=== PATIENT | female | born 1965 | race Caucasian/White ===

== ENCOUNTER 2023-09-21 17:33 | Emergency (ER) | payer OTHER, SELFPAY ==
--- NOTE | 2023-09-21 17:43 | ED.FEMALEGU ---
HPI - Female Genitourinary General Chief complaint: Urogenital-Female Stated complaint: Urinary Problems Time Seen by Provider: 09/21/23 18:08 Source: patient and RN notes reviewed Mode of arrival: ambulatory Limitations: no limitations History of Present Illness HPI Narrative: 58-year-old female presents with concern for intermittent history for 2 weeks dysuria, frequency, urgency, low back pain. Reports she started feeling slightly nauseated today. Denies fever, vomiting, abdominal pain. Reports history of UTIs MD elicited complaint: UTI Related Data Home Medications Medication Instructions Recorded Confirmed levothyroxine 100 mcg tablet 100 mcg PO DAILY 11/16/21 09/21/23 losartan 100 1 tablet PO DAILY 11/16/21 09/21/23 mg-hydrochlorothiazide 12.5 mg tablet metformin 1,000 mg tablet,extended 1,000 mg PO DAILY 11/16/21 09/21/23 release 24hr (osmotic) pravastatin 40 mg tablet 40 mg PO DAILY 11/16/21 09/21/23 venlafaxine 150 mg 150 mg PO DAILY 11/16/21 09/21/23 capsule,extended release 24 hr Allergies Allergy/AdvReac Type Severity Reaction Status Date / Time atropine Allergy Unknown Hives Verified 09/21/23 17:48 latex Allergy Unknown Hives Verified 09/21/23 17:48 Sulfa (Sulfonamide Allergy Unknown Hives Verified 09/21/23 17:48 Antibiotics) ANTIDIARRHEA Allergy Unknown Hives Uncoded 09/21/23 17:48 DIPHENOXYLATE/ATROPINE Allergy Unknown Y Uncoded 09/21/23 17:48 (Generic Allergy) SULFAMETHOXAZOLE (Generic Allergy Unknown Y Uncoded 09/21/23 17:48 Allergy) Review of Systems Review of Systems: CONSTITUTIONAL: Denies malaise, chills, sweats, or fever. CARDIOVASCULAR: Denies chest pain, palpitations, or edema. RESPIRATORY: Denies cough or dyspnea. GASTROINTESTINAL: Denies abdominal pain, nausea, vomiting, diarrhea GENITOURINARY: Reports dysuria, frequency, urgency. Denies flank pain or hematuria. SKIN: Denies rash or itching. MUSCULOSKELETAL: Reports low back pain All systems reviewed & are unremarkable except as noted in HPI and below PMFSH Past Medical History Medical History Cardiac arrhythmia Diabetes High cholesterol Hypertension Surgical History Surgical History H/O: hysterectomy History of tubal ligation Family History Family History Mother Hypertension Family history of osteoarthritis Father Hypertension Family history of diabetes mellitus in first degree relative Sibling Hypertension Social History Social History (Updated 01/31/23 @ 16:12 by Yumiko Nesbitt MA) Smoking status: Current every day smoker Tobacco type: cigarettes Alcohol intake: current Alcohol use details: soically Substance use: never Substance use type: does not use Lack of Transportation: No Lack of Food: Never True Current Housing: I Have Housing Concerned About Future Housing: No Difficulty Paying Gas/Electric Bills: No Difficulty Paying for Meds: No Currently Unemployed: No Education: High School Diploma/GED Living arrangements: with family Occupation/Education: occupation Gender identity (if verbalized by the patient): Female Sexual Orientation (if Verbalized by the Patient): Straight or Heterosexual Comments At time of signature, agree with nursing past medical, surgical, social and family history. There is no relevant family history pertinent to the presenting complaint Exam Narrative: GENERAL: Well-appearing, well-nourished, and in no acute distress. HEAD: Normocephalic. EYES: PERRLA, conjunctivae clear. NECK: Supple. No lymphadenopathy CHEST: Clear to auscultation. No respiratory distress. HEART: Regular rate and rhythm. ABDOMEN: Soft, nontender upon palpation, nondistended, normal active bowel sounds, no palpable or pulsatile masses, no guarding. No CVA tenderness SKIN: Warm, dry, no
[2023-09-21 17:53] VITALS: BP 117/69; PULSE 93; RESP 16; TEMP 36.7; O2SAT 98
== END 2023-09-21 18:20 | disposition home or self-care (01) ==
PROVIDERS: Emergency Provider Nurse Practitioner; PCP Physician Assistant
DX: R30.0 Dysuria (principal); R35.0 Frequency of micturition; R39.15 Urgency of urination; E78.00 Pure hypercholesterolemia, unspecified; I10 Essential (primary) hypertension; E11.9 Type 2 diabetes mellitus without complications; Z79.84 Long term (current) use of oral hypoglycemic drugs
CPT/HCPCS: 81003; 87086; 87088; 99213; G0463

== ENCOUNTER 2025-03-03 10:34 | Outpatient (CLI) | payer OTHER, SELFPAY ==
--- OUTSIDE RECORDS SUMMARY | 2010-04-12 04:30 | XMS_ITS | Continuity of Care Document ---
Author Organization [facility] Address [address] [place] [address] Phone Care Team Providers Care Slug Press Operator Name Role Phone Romaine Liz Unavailable Unavailable Procedures Procedure Date Visual Field Examination(s) Office/outpatient Visit, Est Office/outpatient Visit, Est Visual Field Examination(s) Office/outpatient Visit, Est Office/outpatient Visit, Est Visual Field Examination(s) Office/outpatient Visit, Est Fundus Photography W/ Report Office/outpatient Visit, Est Visual Field Examination(s) Vision Svcs Frames Purchases Progressive Lens, Plastic Tint Photochromatic, Plastic Tax - Medical Eye Exam & Treatment Refraction Advance Directives Directive Yes / No Effective Date File Name No Information Encounters Encounter Description Practice Location Reason(s) For Visit Diagnoses Date Provider Providers Copied on Encounter [facility], [address], [place], [place], [id number], [place] tel:[phone] [facility] No Information Apr- 2-201 0 Agusto Gavin. [facility] , [address], [place], [address], [place]. tel:[phone] Referring Provider: Judy [facility]omes [facility] [address] [address], [place], [place], [facility]. tel:[phone] Office/outpat ient Visit, [facility], [id number] [place] [address] [address], [place], [place], [id number], [place] tel:[phone] [facility] No Information Dec-0 7-201 0 Agusto Gavin. [address] [place], [place] [address]ate Center , [address], [place], [place], [facility], . tel:[phone] Office/outpat ient Visit, [facility], [address] [place] [address] [address], [place], [place], [address], [place] tel:[phone] [facility] [place] No Information 0 5201 0 Agusto Gavin. [address] [place] [address] Center , [address], [place], [place], [facility], . tel:[phone] [facility], [address] [place] [address] [address], [place], [place], [id number], [place] tel:[phone] [facility] [place] No Information 2 9200 9 Agusto Gavin. [address] [place], [place] [address]ate Center , [address], [place], [place], [facility], . tel:[phone] Referring Provider: Romaine Briones, [address] [place], [place] [address]ate Center [address], [place], [facility]. tel:[phone] Office/outpat ient Visit, [facility], [address] [place] [address] [address], [place], [place], [id number], [place] tel:[phone] [facility] [place] No Information 200 9 Agusto Gavin. [address] [place] [address] , [address], [place], [place], [facility], . tel:[phone] Office/outpat ient Visit, [facility], [address] [place] [address] [address], [place], [place], [id number], [place] tel:[phone] [facility] No Information 2 5-200 9 Agusto Gavin. [address] [place], [place] [address]ate Center , [address], [place], [place], [facility], . tel:[phone] [facility], [address], [place], [place], [address], [place] tel:[phone] [facility] No Information 2 4-200 8 Agusto Gavin. [address] [place], [place] [address]ate Center , [address], [place], [facility], [place]. tel:[phone] Referring Provider: Romaine Briones, [address] [place], [place] [address]ate [place] [address], [place], [facility]. tel:[phone] Office/outpat ient Visit, [facility], [address] [place] [address] [address], [place], [place], [id number], tel:[phone] [facility] No Information 8-200 8 Agusto Gavin. [address] [place], [place] [address]ate Center , [address], [place], [facility], [place]. tel:[phone] Referring Provider: Romaine Briones, [address] [place], [place] [address]ate Center [address], [place], [facility]. tel:[phone] Office/outpat ient Visit, [facility], [address] [place] [address] [address], [place], [place], [address], [place] tel:[phone] [facility] No Information 5-200 8 Agusto Gavin. [address] [place], [place] [address]ate [place] , [address], [place], [facility], [place]. tel:[phone] [facility], [address] [place] [address] [address], [place], [place], [address], [place] tel:[phone] [facility] No Information Apr-0 4-200 7 Agusto Gavin. [address] [place] [address] , [address], [place], [address], [place]. tel:[phone] Referring Provider: Romaine Briones, [facility] [place] [address], [place], [facility]. tel:[phone] [facility], [address] [facility] [address], [place], [place], [address], [place] tel:[phone] [facility] No Information Asif-0 1200 7 [facility] [employer] . [address], [address], [place], [place], [address], [place]. tel:[phone] Referring Provider: Romaine Briones, [facility] [address], [place], [facility]. tel:[phone] g Provider: Elizabet Dias, [address] [place] [address], [place], [address]. tel:[phone] [facility], [address], [place], [place], [address], [place] tel:[phone] [facility] No Information Asif-0 200 7 Agusto Gavin. [address] [place] [address] , [address], [place], [facility], [place]. tel:[phone] Family History Family Member Type Diagnosis Age At Onset No Information Payers Payer name Insurance type Covered alliance party ID Authoriza tion(s) No Information Social History Type Description Quantity Date Captured Comments Sex Female Smoking Status No Information Chief Complaint And Reason For Visit No Information Reason For Referral Reason For Referral No Information History Of Present Illness Encounter Date Complaint History Of Prese nt Illness No Information Functional Status Date Functional Assessmen t No Information Instructions Date Instruction Additional Infor mation No Information Assessments Type Assessment Date No Information Patient Care Teams Name Effective Dates (start - stop) Status Members No Information
--- NOTE | ~2025-03-03 | MMUS_ITS ---
EXAMINATION: US breast RT limited, MM diagnostic suzanne BI w acosta HISTORY: Right breast lump TECHNIQUE: [Bilateral craniocaudal, bilateral mediolateral oblique and bilateral mediolateral full field digital mammography. 3-D tomosynthesis were obtained and synthetic 2-D images were generated. CAD analysis was submitted and interpreted. High resolution [right breast ultrasound was performed of the area of palpable concern in the right breast at the 7:00 to 8:00 position.] ] Spot compression mammographic images of the right breast were obtained. COMPARISON: None available BREAST PARENCHYMAL COMPOSITION: The breasts are composed of scattered fibroglandular densities FINDINGS: MAMMOGRAPHIC FINDINGS: No suspicious calcifications, masses or architectural distortion in either breast. ULTRASOUND: [There is no evidence of focal abnormal solid or cystic lesion in the vicinity of the [reported palpable abnormality of concern in the right breast at the 7:00 to 8:00 position. ]] IMPRESSION/RECOMMENDATION: No mammographic or sonographic abnormality in the area of palpable concern in the right breast at the 7:00 position. Annual screening mammogram is recommended. BIRADS 2-Benign A benign mammogram and breast ultrasound should not preclude additional workup and/or biopsy of a clinically suspicious abnormality. Reviewed, dictated and finalized at location Q. IMPRESSION/RECOMMENDATION: No mammographic or sonographic abnormality in the area of palpable concern in t he right breast at the 7:00 position. Annual screening mammogram is recommended . BIRADS 2-Benign A benign mammogram and breast ultrasound should not preclude additional workup and/or biopsy of a clinically suspicious abnormality. IMPRESSION/RECOMMENDATION: No mammographic or sonographic abnormality in the area of palpable concern in t he right breast at the 7:00 position. Annual screening mammogram is recommended . BIRADS 2-Benign A benign mammogram and breast ultrasound should not preclude additional workup and/or biopsy of a clinically suspicious abnormality.
--- OUTSIDE RECORDS SUMMARY | 2025-03-03 11:08 | XMS_ITS | Clinical Summary ---
Author Organization [facility] [employer] Address [address] [place] [address] Care Team Providers Care Exchange Trouble Shooter Name Role Phone Jordin Mueller MD Primary Care Provider [phone] Source Comments [facility] [employer],non-owned Affiliates and Associated Physician Practices is amultiple site organization consisting of ambulatory clinics and hospital sitesin [place], [place], [place] and [place]. This disclosure is being madepursuant to the Care Everywhere program and may not contain all information available regarding this patient. Last updated 18.[facility] [employer] Allergies Active Allergy Reactions Criticality Noted Date Comments Lomotil 02/15/2017 Medications * Be aware that medications may not be up to date on this document. Alwaysverify current medications with the patient. METFORMIN HCL ER, MOD, PO Active VENLAFAXINE HCL ER PO Active LEVOTHYROXINE SODIUM PO Active PRAVASTATIN SODIUM PO Active VALSARTAN PO Active estradiol (ESTRACE) 0.1 MG/GM vaginal cream Insert into the vagina at bedtime Active Social History Tobacco Use Types Packs/Day Years Used Date Smoking Tobacco: Every Day Smokeless Tobacco: Never Comments No Sex and Gender Information Value Date Recorded Sex Assigned at Not on file Legal Sex Female 12:48 PM CDT Gender Identity Not on file Sexual Orientation Not on file Last Filed Vital Signs Vital Sign Reading Time Taken Comments Blood Pressure 132/80 02/15/2017 3:34 PM CDT Pulse 83 02/15/2017 3:34 PM CDT Temperature 37.1 C (98.7 F) 02/15/2017 3:34 PM CDT Respiratory Rate 18 02/15/2017 3:34 PM CDT Oxygen Saturation 97% 02/15/2017 3:34 PM CDT Inhaled Oxygen Concentration - - Weight 102.1 kg (225 lb) 02/15/2017 3:34 PM CDT Height 157.5 cm (5' 2) 02/15/2017 3:34 PM CDT Body Mass Index 41.15 02/15/2017 3:34 PM CDT Plan of Treatment Health Maintenance Due Date Last Done Comments COLOGUARD (AGES 45-75) - COL ON CA SCREENING 1963 COLON MONITORING 1963 COLONOSCOPY - COLON CA SCREENING 1963 CT COLONOGRAPHY - COLON CA SCREENING 1963 Colorectal Cancer Screening 1963 FIT - COLON CA SCREENING 1963 FLEX SIG - COLON CA SCREENING 1963 MAMMOGRAM 1963 HIV SCREENING 09/05/1978 HEPATITIS C SCREENING 09/01/1981 DTAP/TDAP/TD VACCINES (1 - Tdap) 09/05/1982 PNEUMOCOCCAL VACCINE 50+ (1 of 1 - PCV) 09/05/2013 ZOSTER VACCINE (1 of 2) 09/05/2013 SCREENING FOR DIABETES 02/15/2017 COVID-19 VACCINE (1 - 2023-2 5 season) 2024 DEPRESSION SCREENING 07/02/2024 INFLUENZA VACCINE (#1) 2025 Respiratory Syncytial Virus (RSV) Vaccine Pt: or over 60 yrs (1 - 1-dose 75+ series) 09/05/2038 HEPATITIS B VACCINE Aged Out No longe r eligible based on patient's age to complete this topic HIB VACCINE Aged Out No longer eligi ble based on patient's age to complete this topic HPV VACCINE Aged Out No longer eligi ble based on patient's age to complete this topic MENINGOCOCCAL (Group B) VACC INE SHARED DECISION-MAKING Aged Out No longer eligibl e based on patient's age to complete this topic MENINGOCOCCAL GROUPS A/C/Y/W VACCINE Aged Out No longer eligible b ased on patient's age to complete this topic Insurance [facility] Care Teams Exchange Trouble Shooter Relationship Specialty Start Date End Date Jordin Mueller MD [address] [place] [address] PCP - General Internal Medicine 02/15/17
== END 2025-03-03 10:35 | disposition home or self-care (01) ==
LOC: CHSIMG 10:35
PROVIDERS: PCP Physician Assistant; Visit Provider Obstetrics & Gynecology
DX: N63.13 Unspecified lump in the right breast, lower outer quadrant (principal)
CPT/HCPCS: 76642; 77062; 77066; G0279